=== PATIENT | male | born 1995 ===

== ENCOUNTER 2019-10-24 18:41 | Outpatient (REF) | payer OTHER, SELFPAY ==
[2019-10-26 14:14] LABS: GC Result Negative (Negative)
[2019-10-26 14:27] LABS: HIV-1/2 Ag & Ab Screen Negative (Negative)
[2019-10-26 16:52] LABS: Chlamydia Result Positive (Negative)
== END 2019-10-24 19:01 ==
LOC: NCHCN 18:41
PROVIDERS: PCP Nurse Practitioner Family; Visit Provider Nurse Practitioner Family
DX: Z20.2 Contact with and (suspected) exposure to infections with a predominantly sexual mode of transmission (principal); Z11.3 Encounter for screening for infections with a predominantly sexual mode of transmission; Z11.4 Encounter for screening for human immunodeficiency virus [HIV]
CPT/HCPCS: 87389; 87491; 87591